=== PATIENT | female | born 1960 | race Two or more races ===

== ENCOUNTER 2018-11-27 11:45 | Inpatient (IN) | payer MEDICARE, MEDICAID ==
[~2018-11-27] VITALS: Ht 157.5 cm; Wt 54.4 kg
[2018-11-27 12:18] LABS: BASOPHILS % (AUTO) 0.6 % (0.0-2.0); EOSINOPHILS % (AUTO) 0.1 % (1.0-6.0); HEMATOCRIT 41.9 % (36-46); HEMOGLOBIN 13.9 g/dL (12.0-16.0); LYMPHOCYTES # (AUTO) 1.7 K/uL (1.0-4.8); LYMPHOCYTES % (AUTO) 21.4 % (22.0-44.0); MEAN CORPUSCULAR HEMOGLOBIN 29.9 pg (26.0-34.0); MEAN CORPUSCULAR HGB CONC 33.1 G/dL (31.0-37.0); MEAN CORPUSCULAR VOLUME 90 fL (80-100); MONOCYTES # (AUTO) 0.5 K/uL (0.1-1.0); MONOCYTES % (AUTO) 5.6 % (2.0-9.0); NEUTROPHILS # (AUTO) 5.9 K/uL (1.8-7.7); NEUTROPHILS % (AUTO) 72.3 % (40.0-70.0); PLATELET COUNT (AUTO) 300 K/uL (150-450); RED BLOOD CELL COUNT(AUTO) 4.64 MIL/uL (4.00-5.20); RED CELL DISTRIBUTION WIDTH 15.1 % (11.5-14.5)
[2018-11-27 12:26] LABS: ANION GAP 18 mmol/L (8-16); CALCIUM, TOTAL 9.5 mg/dL (8.8-10.5); CARBON DIOXIDE 20 mmol/L (22-29); CHLORIDE 98 mmol/L (98-107); CREATININE 0.81 mg/dL (0.60-1.30); GLOMERULAR FILTR. RATE CALC > 60 mL/min (>60); GLUCOSE,RANDOM 112 mg/dL (70-110); POTASSIUM 3.4 mmol/L (3.5-5.1); SODIUM SERUM 136 mmol/L (136-145); UREA NITROGEN, BLOOD 13 mg/dL (7-18)
[2018-11-27 12:32] LABS: ALANINE AMINOTRANSFERASE 28 U/L (12-78); ALBUMIN 4.3 g/dL (3.4-5.0); ALKALINE PHOSPHATASE 122 U/L (46-116); ASPARTATE AMINOTRANSFERASE 27 U/L (15-37); BILIRUBIN,TOTAL 0.5 mg/dL (0.1-1.0); TOTAL PROTEIN, SERUM 8.7 g/dL (6.4-8.2)
[2018-11-27] MEDS ORDERED: TRAM50TA4 PO (12:34)
[2018-11-27] MEDS ORDERED: POTASSIUM CHLORIDE 10% 40 MEQ/30 ML LIQUID UDCUP PO ONE (13:15)
[2018-11-27] MEDS ORDERED: HALOPERIDOL 5 MG TABLET PO PRN (14:00)
[2018-11-27 14:34] LABS: AMPHET/METH SCREEN,URINE NEGATIVE (NEGATIVE); BARBITURATE SCREEN, URINE NEGATIVE (NEGATIVE); BENZODIAZEPINES SCREEN,URINE NEGATIVE (NEGATIVE); CANNABINOID SCREEN,URINE NEGATIVE (NEGATIVE); COCAINE SCREEN,URINE NEGATIVE (NEGATIVE); METHADONE SCREEN, URINE NEGATIVE (NEGATIVE); OPIATE SCREEN,URINE NEGATIVE (NEGATIVE)
[2018-11-27 14:37] LABS: PHENCYCLIDINE SCREEN,URINE NEGATIVE (NEGATIVE)
[2018-11-27 16:24] LABS: CHOL/HDL RATIO 2.1 (3.9-5.7); CHOLESTEROL 244 mg/dL (131-200); HDL CHOLESTEROL 116 mg/dL (40-60); LDL CHOL (CALC.) 118 mg/dL (0-130); TRIGLYCERIDES 52 mg/dL (15-150)
[2018-11-27 17:45] VITALS: BP 176/106
[2018-11-27 17:50] VITALS: BP 176/106
[2018-11-27 18:45] VITALS: BP 137/79
[2018-11-27] MEDS ORDERED: ONDANSETRON HCL 4 MG TABLET PO PRN (18:45)
[2018-11-27] MEDS ORDERED: ALBUTEROL SULFATE HFA 90 MCG/PUFF 8 GM INHALER IH PRN (18:45)
[2018-11-27] MEDS ORDERED: IBUPROFEN 400 MG TABLET PO PRN (18:45)
[2018-11-27] MEDS ORDERED: PETROLATUM,WHITE 71 GM JELLY TP PRN (18:45)
[2018-11-27] MEDS ORDERED: MAG HYDROX/AL HYDROX/SIMETH ES 30 ML SUSPENSION UDCUP PO PRN (18:45)
[2018-11-27] MEDS ORDERED: ACETAMINOPHEN 325 MG TABLET PO PRN (18:45)
[2018-11-27] MEDS ORDERED: GuaiFENesin/D-METHORPHAN [SUGAR-FREE] 200-20MG/10 ML SYRUP UDCUP PO PRN (18:45)
[2018-11-27] MEDS ORDERED: CloNIDine HCL 0.1 MG TABLET PO PRN (18:45)
[2018-11-27] MEDS ORDERED: NICOTINE 14 MG/24 HOUR PATCH TD PRN (18:45)
[2018-11-27] MEDS ORDERED: MAGNESIUM HYDROXIDE SUSPENSION 30 ML UDCUP PO PRN (18:45)
[2018-11-27] MEDS ORDERED: LOPERAMIDE HCL 2 MG CAPSULE PO PRN (18:45)
[2018-11-27] MEDS ORDERED: DOCUSATE SODIUM 100 MG CAPSULE PO PRN (18:45)
[2018-11-27 19:45] VITALS: BP 134/84
[2018-11-27 20:25] VITALS: BP 124/83
[2018-11-28] VITALS (10 sets, daily range): BP systolic 101–129; BP diastolic 60–78
[2018-11-28] MEDS: ZOLPIDEM TARTRATE 10 MG TABLET PO PRN (03:02)
[2018-11-28 08:24] LABS: HEMATOCRIT 36.9 % (36-46); MONOCYTES # (AUTO) 0.3 K/uL (0.1-1.0); MONOCYTES % (AUTO) 9.2 % (2.0-9.0); NEUTROPHILS # (AUTO) 1.6 K/uL (1.8-7.7); RED BLOOD CELL COUNT(AUTO) 4.15 MIL/uL (4.00-5.20)
[2018-11-28 08:32] LABS: BASOPHILS % (AUTO) 1.8 % (0.0-2.0); EOSINOPHILS % (AUTO) 0.9 % (1.0-6.0); HEMOGLOBIN 12.5 g/dL (12.0-16.0); LYMPHOCYTES # (AUTO) 1.3 K/uL (1.0-4.8); LYMPHOCYTES % (AUTO) 39.6 % (22.0-44.0); MEAN CORPUSCULAR HGB CONC 33.7 G/dL (31.0-37.0); MEAN CORPUSCULAR VOLUME 89 fL (80-100); NEUTROPHILS % (AUTO) 48.5 % (40.0-70.0); PLATELET COUNT (AUTO) 294 K/uL (150-450)
[2018-11-28 08:34] LABS: HEMOGLOBIN A1C 6.2 % (4.5-6.2)
[2018-11-28 08:49] LABS: ALBUMIN 3.6 g/dL (3.4-5.0); BILIRUBIN,TOTAL 0.6 mg/dL (0.1-1.0); CALCIUM, TOTAL 9.1 mg/dL (8.8-10.5); CHOL/HDL RATIO 2.1 (3.9-5.7); CREATININE 1.07 mg/dL (0.60-1.30); POTASSIUM 4.2 mmol/L (3.5-5.1); THYROID STIMULATING HORMONE 4.82 uIU/mL (0.36-3.74); TOTAL PROTEIN, SERUM 7.4 g/dL (6.4-8.2)
[2018-11-28] MEDS: FOLIC ACID 1 MG TABLET PO SCH (09:57)
[2018-11-28] MEDS: DIVALPROEX SODIUM 500 MG ER TABLET PO SCH (10:59)
[2018-11-28] MEDS: RisperiDONE 1 MG TABLET PO SCH ×2 (10:59→16:08)
[2018-11-28] MEDS: BuPROPion HCL 100 MG SR TABLET PO SCH (10:59)
[2018-11-29] MEDS: LORazepam 2 MG TABLET PO PRN (04:18)
[2018-11-29 04:19] VITALS: BP 108/72
[2018-11-29 08:23] VITALS: BP 103/69
[2018-11-29] MEDS: RisperiDONE 1 MG TABLET PO SCH ×2 (08:50→16:48)
[2018-11-29] MEDS: DIVALPROEX SODIUM 500 MG ER TABLET PO SCH (08:50)
[2018-11-29] MEDS: FOLIC ACID 1 MG TABLET PO SCH (08:50)
[2018-11-29] MEDS: BuPROPion HCL 100 MG SR TABLET PO SCH (08:50)
[2018-11-29 16:08] VITALS: BP 111/62
[2018-11-29 16:09] VITALS: BP 111/62
[2018-11-29] MEDS: ZOLPIDEM TARTRATE 10 MG TABLET PO PRN (21:45)
[2018-11-30 01:53] VITALS: BP 109/64
[2018-11-30] MEDS: LORazepam 2 MG TABLET PO PRN ×2 (03:28→17:22)
[2018-11-30 08:42] VITALS: BP 109/79
[2018-11-30] MEDS: FOLIC ACID 1 MG TABLET PO SCH (09:13)
[2018-11-30] MEDS: DIVALPROEX SODIUM 500 MG ER TABLET PO SCH (09:13)
[2018-11-30] MEDS: RisperiDONE 1 MG TABLET PO SCH ×2 (09:14→16:35)
[2018-11-30] MEDS: BuPROPion HCL 100 MG SR TABLET PO SCH (10:41)
[2018-11-30 16:09] VITALS: BP 126/84
[2018-12-01] MEDS: ZOLPIDEM TARTRATE 10 MG TABLET PO PRN (03:04)
[2018-12-01 05:29] VITALS: BP 130/87
[2018-12-01 05:30] VITALS: BP 130/87
[2018-12-01 08:17] VITALS: BP 104/65
[2018-12-01] MEDS: DIVALPROEX SODIUM 500 MG ER TABLET PO SCH (08:26)
[2018-12-01] MEDS: BuPROPion HCL 100 MG SR TABLET PO SCH (08:27)
[2018-12-01] MEDS: RisperiDONE 1 MG TABLET PO SCH (08:27)
[2018-12-01] MEDS: FOLIC ACID 1 MG TABLET PO SCH (08:27)
[2018-12-01] MEDS ORDERED: RISP1 PO (10:06)
[2018-12-01] MEDS ORDERED: DIVA500T52 PO (10:06)
[2018-12-01] MEDS ORDERED: BUPR100SR PO (10:06)
[2018-12-01] MEDS ORDERED: ALBU8HFA IH (10:09)
[2018-12-01] MEDS ORDERED: FOLI1 PO (10:10)
== END 2018-12-01 13:20 | disposition home or self-care (01) | DRG 885 ==
LOC: EMS 11:47 → B2X 15:58
PROVIDERS: ADMIT Psychiatry & Neurology Child & Adolescent Psychiatry; ATTEND Psychiatry & Neurology Child & Adolescent Psychiatry
DX: F25.0 Schizoaffective disorder, bipolar type (principal); F15.10 Other stimulant abuse, uncomplicated; F11.90 Opioid use, unspecified, uncomplicated; F10.129 Alcohol abuse with intoxication, unspecified; E87.6 Hypokalemia; E78.5 Hyperlipidemia, unspecified; F41.9 Anxiety disorder, unspecified; F12.90 Cannabis use, unspecified, uncomplicated; D72.819 Decreased white blood cell count, unspecified; Z87.891 Personal history of nicotine dependence; Z59.0 Homelessness
CPT/HCPCS: 83036; 84439; 84443; 87081; 93005; G0480; J3535